=== PATIENT | female | born 1955 ===

== ENCOUNTER → 2017-12-11 | Outpatient (CLI) | payer BC ==
[~2017-12-11] MED LIST: ALPR-448 PO; ASPI-1471 PO; DOXY25TA11 PO; ESOM20CA31 PO; LISI-351 PO; LISI-355 PO; METO-253 PO; NITR-105 PO; OMEP-137 PO; RANI-324 PO; SIMV-49 PO; SIMV-54 PO; TRAZ-156 PO
== END ==
LOC: LAB 11:46
PROVIDERS: ATTEND Emergency Medicine
DX: I10 Essential (primary) hypertension (principal)
CPT/HCPCS: 36415; 82310; 82374; 82435; 82565; 82947; 84132; 84295; 84520